=== PATIENT | female | born 1990 | race African-American/Black ===

== ENCOUNTER 2019-02-18 08:34 | Emergency (ER) | payer OTHER ==
[~2019-02-18] VITALS: Ht 152.4 cm; Wt 53.5 kg
[2019-02-18] MEDS ORDERED: DAILY VALUE1 EACH (08:47)
[2019-02-18] MEDS ORDERED: FISH OIL 1,0001 EAC4 (08:47)
== END 2019-02-18 10:16 | disposition home or self-care (01) ==
LOC: ER 08:34
DX: S05.11XA Contusion of eyeball and orbital tissues, right eye, initial encounter (principal); S19.89XA Other specified injuries of other specified part of neck, initial encounter; V00.831A Fall from motorized mobility scooter, initial encounter; Y93.02 Activity, running; Y92.89 Other specified places as the place of occurrence of the external cause; Y99.8 Other external cause status